=== PATIENT | female | born 1995 | race Caucasian/White ===

== ENCOUNTER 2018-05-15 03:24 | Outpatient (CLI) | payer BC, MEDICAID ==
[2018-05-15 04:46] LABS: ADD MAN DIFF? NO
[2018-05-15 04:50] LABS: ADD UMIC NO; UR ASCORBIC ACID NEGATIVE (NEGATIVE); UR BILIRUBIN (Dip) NEGATIVE (NEGATIVE); UR BLOOD (Dip) NEGATIVE (NEGATIVE); UR CLARITY CLEAR (CLEAR); UR COLOR COLORLESS (YELLOW); UR GLUCOSE (Dip) NEGATIVE (NEGATIVE); UR KETONES (Dip) NEGATIVE (NEGATIVE); UR LEUKOCYTE ESTERASE (Dip) NEGATIVE Leu/ul (NEGATIVE); UR NITRITE (Dip) NEGATIVE (NEGATIVE); UR SPECIFIC GRAVITY (Dip) 1.004 (1.003-1.030); UR TOTAL PROTEIN (Dip) NEGATIVE (NEGATIVE); UR UROBILINOGEN (Dip) NEGATIVE (NEGATIVE)
[2018-05-15 04:53] LABS: BASOPHILS % 0.2 % (0.0-2.0); EOSINOPHILS # 0.1 10^3/ul (0.0-0.5); EOSINOPHILS % 0.6 % (0.0-7.0); HEMATOCRIT 33.5 % (37.0-47.0); HEMOGLOBIN 10.9 g/dl (12.0-16.0); MEAN CORPUSCULAR HEMOGLOBIN 31.3 pg (29.0-33.0); MEAN CORPUSCULAR HGB CONC 32.5 g/dl (32.0-37.0); MEAN CORPUSCULAR VOLUME 96.3 fl (82.0-101.0); MEAN PLATELET VOLUME 10.9 fl (7.4-10.4); MONOCYTE # 0.9 10^3/ul (0.3-0.9); MONOCYTES % 7.2 % (0.0-11.0); NEUTROPHIL # 10.7 10^3/ul (1.6-7.5); NEUTROPHILS % 83.4 % (39.0-77.0); PLATELET COUNT 202 10^3/UL (140-415); RED BLOOD COUNT 3.48 10^6/ul (4.20-5.40); RED CELL DISTRIBUTION WIDTH 13.4 % (11.5-14.5)
[2018-05-15 04:53] LABS: WHITE BLOOD COUNT 12.9 10^3/ul (4.8-10.8)
[2018-05-15 05:10] LABS: ALANINE AMINOTRANSFERASE 14 IU/L (13-69); ALBUMIN 3.4 g/dl (3.3-4.9); ALBUMIN/GLOBULIN RATIO 1.09; ALKALINE PHOSPHATASE 114 IU/L (42-121); ANION GAP 9 (5-13); ASPARTATE AMINO TRANSFERASE 15 IU/L (15-46); BILIRUBIN,INDIRECT 0.3 mg/dl (0-1.1); BILIRUBIN,TOTAL 0.3 mg/dl (0.2-1.3); BLOOD UREA NITROGEN 7 mg/dl (7-20); CALCIUM 8.8 mg/dl (8.4-10.2); CARBON DIOXIDE 20 mmol/L (21-31); CHLORIDE 110 mmol/L (97-110); CREATININE 0.44 mg/dl (0.44-1.00); Estimated GFR > 60 mL/min (>60); GLUCOSE 97 mg/dl (70-220); POTASSIUM 3.4 mmol/L (3.5-5.1); SODIUM 139 mmol/L (135-144); TOTAL PROTEIN 6.5 g/dl (6.1-8.1)
[2018-05-15 05:11] LABS: URIC ACID 2.4 mg/dl (3.1-7.9)
[2018-05-15] MEDS: LACTATED RINGER'S 500 ML IV (05:22)
[2018-05-15] MEDS: LACTATED RINGER'S 1,000 ML IV (06:02)
[2018-05-15] MEDS ORDERED: ACETAMINOPHEN 325 MG TAB (07:53)
[2018-05-15] MEDS: ACETAMINOPHEN 325 MG TAB PO (07:58)
== END 2018-05-15 10:49 | disposition home or self-care (01) ==
LOC: OBT 03:24 → L-D 03:26 → OBT 10:49
DX: O62.9 Abnormality of forces of labor, unspecified (principal); Z3A.28 28 weeks gestation of pregnancy
CPT/HCPCS: 36415; 76815; 76817; 80053; 81003; 82731; 84560; 85025; 96360; 96361

== ENCOUNTER 2018-05-17 12:18 | Outpatient (CLI) | payer BC | END 2018-05-17 15:00 | disposition home or self-care (01) | LOC: OBT 12:18 → L-D 12:21 → OBT 15:00 | DX: O36.8320 Maternal care for abnormalities of the fetal heart rate or rhythm, second trimester, not applicable or unspecified (principal); Z3A.28 28 weeks gestation of pregnancy | CPT/HCPCS: 76818 ==

== ENCOUNTER 2018-07-13 03:43 | Inpatient (IN) | payer BC ==
[2018-07-13] MEDS: LACTATED RINGER'S 1,000 ML IV ×5 (08:32→20:23)
[2018-07-13] MEDS: NIFEdipine 10 MG CAP PO (08:33)
[2018-07-13] MEDS ORDERED: LACTATED RINGER'S 1,000 ML IV (09:33)
[2018-07-13 09:55] LABS: ADD MAN DIFF? NO
[2018-07-13] MEDS ORDERED: OXYTOCIN 30 UNITS/LR 500 ML IV ×2 (10:00→18:00)
[2018-07-13] MEDS ORDERED: CARBOPROST 250 MCG INJ IM ×2 (10:00→18:00)
[2018-07-13] MEDS ORDERED: METHYLERGONOVINE 0.2 MG INJ IM ×2 (10:00→18:00)
[2018-07-13] MEDS ORDERED: MISOPROSTOL 200 MCG TAB PR ×2 (10:00→18:00)
[2018-07-13] MEDS ORDERED: AMPICILLIN 2 GM/NS (PMX) 100 ML IV (10:00)
[2018-07-13 10:02] LABS: BASOPHILS % 0.3 % (0.0-2.0); EOSINOPHILS # 0.1 10^3/ul (0.0-0.5); EOSINOPHILS % 0.9 % (0.0-7.0); HEMATOCRIT 32.6 % (37.0-47.0); HEMOGLOBIN 10.4 g/dl (12.0-16.0); LYMPHOCYTES # 2.2 10^3/ul (0.8-2.9); LYMPHOCYTES % 22.2 % (15.0-51.0); MEAN CORPUSCULAR HEMOGLOBIN 30.7 pg (29.0-33.0); MEAN CORPUSCULAR HGB CONC 31.9 g/dl (32.0-37.0); MEAN CORPUSCULAR VOLUME 96.2 fl (82.0-101.0); MEAN PLATELET VOLUME 11.8 fl (7.4-10.4); MONOCYTE # 0.6 10^3/ul (0.3-0.9); MONOCYTES % 6.6 % (0.0-11.0); NEUTROPHIL # 6.7 10^3/ul (1.6-7.5); NEUTROPHILS % 69.3 % (39.0-77.0); PLATELET COUNT 190 10^3/UL (140-415); RED BLOOD COUNT 3.39 10^6/ul (4.20-5.40); RED CELL DISTRIBUTION WIDTH 13.5 % (11.5-14.5)
[2018-07-13 10:02] LABS: WHITE BLOOD COUNT 9.7 10^3/ul (4.8-10.8)
[2018-07-13 10:17] LABS: INR 0.88; PT RATIO 0.9
[2018-07-13 10:18] LABS: PARTIAL THROMBOPLASTIN TIME 25.8 Sec (23.0-35.0)
[2018-07-13] MEDS: CITRIC ACID/NA CITRATE 30 ML CUP PO ×2 (11:25→18:30)
[2018-07-13 11:46] LABS: HEPATITIS B SURFACE ANTIGEN NEGATIVE (NEGATIVE)
[2018-07-13] MEDS: CEFAZOLIN 2 GM/50 ML (PMX) 50 ML IVPB (14:20)
[2018-07-13 15:04] LABS: RAPID PLASMA REAGIN NONREACTIVE (NR)
[2018-07-13] MEDS: OXYTOCIN 30 UNITS/LR 500 ML IV ×3 (15:55→21:35)
[2018-07-13] MEDS ORDERED: OXYCODONE/ACETAMINOPHEN (5/325) TAB PO ×2 (18:00)
[2018-07-13] MEDS ORDERED: HYDROCODONE/APAP (5/325) TAB PO ×2 (18:00)
[2018-07-13] MEDS ORDERED: HYDROmorphONE 0.5 MG/0.5 ML SYG IV ×2 (18:30)
[2018-07-13] MEDS ORDERED: ONDANSETRON 4 MG INJ IV ×2 (18:30)
[2018-07-13] MEDS ORDERED: ZOLPIDEM 5 MG TAB PO (18:30)
[2018-07-13] MEDS ORDERED: MEPERIDINE 25 MG INJ IV (18:30)
[2018-07-13] MEDS ORDERED: METOCLOPRAMIDE 10 MG INJ IV (18:30)
[2018-07-13] MEDS ORDERED: DIPHENHYDRAMINE 50 MG INJ IV ×2 (18:30)
[2018-07-13] MEDS ORDERED: NALBUPHINE HCL (10 MG/1 ML) INJ IV (18:30)
[2018-07-13] MEDS ORDERED: MIDAZOLAM 1 MG/ML 2 ML INJ IV (18:30)
[2018-07-13] MEDS ORDERED: NALOXONE (0.4 MG/ML) INJ IV (18:30)
[2018-07-13] MEDS: CEFAZOLIN 1 GM/50 ML (PMX) 50 ML IVPB (20:24)
[2018-07-13] MEDS: SENNA/DOCUSATE NA (8.6MG/50MG) TAB PO (21:00)
[2018-07-14] MEDS: OXYTOCIN 30 UNITS/LR 500 ML IV ×5 (01:35→17:32)
[2018-07-14] MEDS: KETOROLAC 30 MG INJ IV (06:27)
[2018-07-14 08:11] LABS: ADD MAN DIFF? NO
[2018-07-14 08:12] LABS: BASOPHIL # 0.1 10^3/ul (0.0-0.1); BASOPHILS % 0.6 % (0.0-2.0); EOSINOPHILS # 0.1 10^3/ul (0.0-0.5); EOSINOPHILS % 0.4 % (0.0-7.0); HEMATOCRIT 30.6 % (37.0-47.0); HEMOGLOBIN 9.8 g/dl (12.0-16.0); LYMPHOCYTES # 1.9 10^3/ul (0.8-2.9); LYMPHOCYTES % 15.2 % (15.0-51.0); MEAN CORPUSCULAR HEMOGLOBIN 30.2 pg (29.0-33.0); MEAN CORPUSCULAR VOLUME 94.4 fl (82.0-101.0); MEAN PLATELET VOLUME 11.7 fl (7.4-10.4); MONOCYTE # 1.1 10^3/ul (0.3-0.9); MONOCYTES % 8.6 % (0.0-11.0); NEUTROPHIL # 9.2 10^3/ul (1.6-7.5); NEUTROPHILS % 74.6 % (39.0-77.0); PLATELET COUNT 173 10^3/UL (140-415); RED BLOOD COUNT 3.24 10^6/ul (4.20-5.40); RED CELL DISTRIBUTION WIDTH 13.6 % (11.5-14.5)
[2018-07-14 08:12] LABS: WHITE BLOOD COUNT 12.3 10^3/ul (4.8-10.8)
[2018-07-14] MEDS: SENNA/DOCUSATE NA (8.6MG/50MG) TAB PO ×2 (09:38→20:37)
[2018-07-14] MEDS: IBUPROFEN 600 MG TAB PO ×3 (12:00→18:00)
[2018-07-15] MEDS: LANOLIN HPA 1 PKT TOP (00:17)
[2018-07-15] MEDS: IBUPROFEN 600 MG TAB PO ×3 (00:18→12:00)
[2018-07-15] MEDS: SENNA/DOCUSATE NA (8.6MG/50MG) TAB PO (09:00)
[2018-07-16] MEDS ORDERED: DIPHTH/TET/ACEL PERTUSS (ADULT) 0.5 ML VIAL IM* (09:00)
== END 2018-07-15 13:00 | disposition home or self-care (01) | DRG 788 ==
LOC: OBT 03:43 → L-D 03:45 → OBT 09:30 → L-D 09:30 → PP1 17:34
PROVIDERS: Obstetrics & Gynecology
PROC: 10D00Z1 Extraction of Products of Conception, Low, Open Approach (ICD-10-PCS; principal; 2018-07-13 11:30)
PROC: 4A1HXCZ Monitoring of Products of Conception, Cardiac Rate, External Approach (ICD-10-PCS; 2018-07-13 11:30)
DX: O42.913 Preterm premature rupture of membranes, unspecified as to length of time between rupture and onset of labor, third trimester (principal); O34.219 Maternal care for unspecified type scar from previous cesarean delivery; O40.3XX0 Polyhydramnios, third trimester, not applicable or unspecified; O99.334 Smoking (tobacco) complicating childbirth; F17.200 Nicotine dependence, unspecified, uncomplicated; Z3A.36 36 weeks gestation of pregnancy; Z37.0 Single live birth
CPT/HCPCS: 36415; 62319; 76815; 76818; 85025; 85610; 85730; 86592; 86850; 86900; 86901; 87340; 96360; 99464

== ENCOUNTER 2018-09-25 16:38 | Emergency (ER) | payer BC ==
[2018-09-25] MEDS: ACETAMINOPHEN 325 MG TAB PO (17:41)
== END 2018-09-25 19:20 | disposition home or self-care (01) ==
LOC: FTE 16:38
DX: M54.2 Cervicalgia (principal)
CPT/HCPCS: 72040; 99283-25